=== PATIENT | male | born 1950 | race Caucasian/White ===

== ENCOUNTER → 2025-03-08 12:22 | Outpatient (REF) | payer MEDICARE, OTHER, SELFPAY | LOC: RAD 12:22 | PROVIDERS: ATTENDING PHYSICIAN Surgery Vascular Surgery; FAMILY PHYSICIAN Student in an Organized Health Care Education/Training Program | DX: I73.9 Peripheral vascular disease, unspecified (principal) | CPT/HCPCS: 93922 ==